=== PATIENT | female | born 1950 | race Caucasian/White ===

== ENCOUNTER 2017-08-13 06:31 | Emergency (ER) | payer MEDICARE ==
[~2017-08-13] VITALS: Ht 160 cm; Wt 61.7 kg
[2017-08-13 07:28] LABS: BASO % 0.4 % (0.0-1.0); EOS # 0.1 10*3/uL (0.0-0.4); EOS % 1.3 % (1.0-4.0); HEMATOCRIT 43.9 % (37.0-47.0); LYMPH % 15.6 % (27.0-41.0); MEAN CORPUSCULAR HGB 31.4 pg (27.0-31.0); MEAN CORPUSCULAR HGB CONC 34.2 g/dl (33.0-37.0); MEAN PLATELET VOLUME 9.8 fl (9.6-12.3); MONO # 0.5 10*3/uL (0.1-1.0); MONO % 8.1 % (3.0-9.0); NEUT % 74.2 % (47.0-73.0); PLATELET COUNT AUTOMATED 235 10*3/uL (130-400); RED BLOOD COUNT 4.77 10*6/uL (4.10-5.10); RED CELL DISTRI WIDTH 13.8 % (0-14.5); WHITE BLOOD COUNT 6.7 10*3/uL (4.8-10.8)
[2017-08-13 07:36] LABS: ACT PARTIAL THROMBO TIME 25.9 SECONDS (20.8-31.5)
[2017-08-13 07:42] LABS: ALKALINE PHOSPHATASE 81 U/L (45-117); BUN 14 mg/dl (7-24); CHLORIDE 100 mmol/L (98-107); CREATININE 0.99 mg/dL (0.55-1.02); POTASSIUM 4.1 mmol/L (3.5-5.1); SGOT/AST 34 IU/L (3-35); SGPT/ALT 38 U/L (12-78); SODIUM 136 mmol/L (136-145)
[2017-08-13 07:55] LABS: TROPONIN I < 0.015 ng/ml (<0.045)
== END 2017-08-13 08:28 | disposition home or self-care (01) ==
LOC: ED 06:31
PROVIDERS: Student in an Organized Health Care Education/Training Program
DX: R00.8 Other abnormalities of heart beat (principal)